=== PATIENT | male | born 1960 | race African-American/Black ===

== ENCOUNTER 2023-06-18 10:37 | Emergency (ER) | payer MEDICARE, OTHER ==
[~2023-06-18] VITALS: Ht 182.9 cm; Wt 100.0 kg
[2023-06-18 10:45] VITALS: O2SAT 98
[2023-06-18] MEDS ORDERED: IBUP-2028 PO (12:12)
[2023-06-18 13:17] VITALS: BP 140/85; PULSE 68; RESP 16; TEMP 98.3
== END 2023-06-18 13:18 | disposition home or self-care (01) ==
LOC: ER 10:37
DX: M25.512 Pain in left shoulder (principal); E11.9 Type 2 diabetes mellitus without complications; I10 Essential (primary) hypertension; I25.2 Old myocardial infarction
CPT/HCPCS: 73030; 99284